=== PATIENT | female | born 1985 | race Asian ===

== ENCOUNTER 2018-01-22 21:53 | Emergency (ER) | payer SELFPAY ==
[~2018-01-22] VITALS: Ht 157.5 cm; Wt 54.4 kg
[2018-01-22 22:04] VITALS: BP_SYST 128
[2018-01-22] MEDS ORDERED: ONDANSETRON HCL 4 MG/2 ML VIAL IVP ONE (22:15)
[2018-01-22] MEDS ORDERED: NACL 0.9% 1,000 ML IV ONE ×2 (22:15→23:15)
[2018-01-22] MEDS ORDERED: KETOROLAC TROMETHAMINE 30 MG VIAL IVP ONE (22:15)
[2018-01-22] MEDS ORDERED: MORPHINE 4 MG/ML INJ. SYRINGE IVP ONE (22:45)
[2018-01-22 23:01] LABS: BASOPHILS % (AUTO) 0.1 % (0.0-2.0); EOSINOPHILS % (AUTO) 0.3 % (0.0-4.0); HEMATOCRIT 38.2 % (36-48); HEMOGLOBIN 12.1 g/dL (12.0-16.0); LYMPHOCYTES # (AUTO) 0.4 K/uL (1.0-5.5); MEAN CORPUSCULAR HEMOGLOBIN 27 pg (27-31); MEAN CORPUSCULAR HGB CONC 32 % (32-36); MEAN CORPUSCULAR VOLUME 86 fL (79.0-98.0); MONOCYTES # (AUTO) 0.3 K/uL (0.0-1.0); MONOCYTES % (AUTO) 4.1 % (1.7-9.3); NEUTROPHILS # (AUTO) 6.7 K/uL (1.8-7.7); NEUTROPHILS % (AUTO) 90.5 % (40.0-70.0); PLATELET COUNT (AUTO) 245 K/uL (130-430); RED BLOOD CELL COUNT(AUTO) 4.45 MIL/uL (4.2-6.2); RED CELL DISTRIBUTION WIDTH 11.7 % (9.0-15.0); WHITE BLOOD COUNT (AUTO) 7.4 K/uL (4.8-10.8)
[2018-01-22 23:08] LABS: CALCIUM 8.6 mg/dL (8.4-11.0); CREATININE 0.78 mg/dL (0.55-1.30); POTASSIUM 4.1 mmol/L (3.5-5.1)
[2018-01-22 23:14] LABS: ALBUMIN 3.3 g/dL (3.4-4.8); TOTAL BILIRUBIN 0.6 mg/dL (0.0-1.0)
[2018-01-23] MEDS ORDERED: DICYCLOMINE HCL 20 MG/2 ML AMP IM ONE (00:15)
[2018-01-23 00:20] VITALS: BP_SYST 124
== END 2018-01-23 00:20 | disposition home or self-care (01) ==
LOC: SED 21:53
DX: T62.91XA Toxic effect of unspecified noxious substance eaten as food, accidental (unintentional), initial encounter (principal); R11.2 Nausea with vomiting, unspecified; R19.7 Diarrhea, unspecified; F41.9 Anxiety disorder, unspecified; Y92.89 Other specified places as the place of occurrence of the external cause
CPT/HCPCS: 36415; 80053; 85025; 96361; 96372; 96374; 96375; 99283; J0500; J1885; J2270; J2405; J7030

== ENCOUNTER 2018-05-26 19:50 | Emergency (ER) | payer MEDICAID ==
[~2018-05-26] VITALS: Ht 162.6 cm; Wt 51.3 kg
[2018-05-26 20:00] VITALS: BP_SYST 105
[2018-05-26] MEDS ORDERED: KETOROLAC TROMETHAMINE 30 MG VIAL IM ONE (20:45)
[2018-05-26] MEDS ORDERED: IBUPROFEN 800 MG TABLET PO ONE (21:30)
[2018-05-26 22:00] VITALS: BP_SYST 105
== END 2018-05-26 22:00 | disposition home or self-care (01) ==
LOC: SED 19:50
DX: S06.0X0A Concussion without loss of consciousness, initial encounter (principal); S16.1XXA Strain of muscle, fascia and tendon at neck level, initial encounter; F41.9 Anxiety disorder, unspecified; V43.52XA Car driver injured in collision with other type car in traffic accident, initial encounter; Y93.89 Activity, other specified; Y92.410 Unspecified street and highway as the place of occurrence of the external cause; Y99.8 Other external cause status
CPT/HCPCS: 70450; 72125; 81025; 99284; J1885

== ENCOUNTER 2019-06-10 20:11 | Emergency (ER) | payer MEDICAID ==
[~2019-06-10] VITALS: Ht 162.6 cm; Wt 68.0 kg
[2019-06-10 20:15] VITALS: BP_SYST 131
[2019-06-10 20:38] LABS: BILIRUBIN,URINE NEGATIVE (NEGATIVE); CLARITY/URINE CLEAR (CLEAR); COLOR,URINE YELLOW (YELLOW); GLUCOSE,URINE NEGATIVE (NEGATIVE); KETONES,URINE TRACE (NEGATIVE); LEUKOCYTE ESTERASE ,URINE NEGATIVE (NEGATIVE); NITRITE, URINE NEGATIVE (NEGATIVE); PH,URINE 6.5 (5.0-8.0); PROTEIN URINE NEGATIVE (NEGATIVE); UROBILINOGEN,URINE 0.2 (0.2-1.0)
[2019-06-10 20:41] LABS: BLOOD, URINE TRACE (NEGATIVE)
[2019-06-10 20:50] LABS: BACTERIA,URINE FEW /HPF (None Seen); MUCUS,URINE None Seen /LPF (None Seen); RBC,URINE NONE SEEN /HPF (0-3); WBC,URINE 0-3 /HPF (0-3)
== END 2019-06-10 20:33 | disposition left against medical advice (07) ==
LOC: SED 20:11
DX: M54.6 Pain in thoracic spine (principal); F15.90 Other stimulant use, unspecified, uncomplicated
CPT/HCPCS: 81000-TC; 81025; 87086; 99283

== ENCOUNTER 2019-06-11 16:01 | Inpatient (IN) | payer MEDICAID ==
[~2019-06-11] VITALS: Ht 162.6 cm; Wt 64.9 kg
[2019-06-11 16:05] VITALS: BP_SYST 149
[2019-06-11] MEDS ORDERED: MORPHINE 2 MG/ML INJ. SYRINGE IVP ONE ×3 (16:30→17:45)
[2019-06-11] MEDS ORDERED: ONDANSETRON HCL 4 MG/2 ML VIAL IVP ONE ×2 (16:30→18:45)
[2019-06-11] MEDS ORDERED: NACL 0.9% 1,000 ML IV ONE ×3 (16:30→20:00)
[2019-06-11 16:46] LABS: BARBITURATE, URINE NEGATIVE (NEG <=200); BENZODIAZEPINE, URINE NEGATIVE (NEG <=150); CANNABINOID, URINE POSITIVE (NEG <=50); COCAINE, URINE NEGATIVE (NEG <=150); METHAMPHETAMINES SCREEN,URINE POSITIVE (NEG <=500); OPIATE, URINE POSITIVE (NEG <=100); PHENCYCLIDINE SCREEN,URINE NEGATIVE (NEG <=25); UR TRICYCLIC ANTIDEPRESSANTS NEGATIVE (NEG <=300); URINE AMPHETAMINE POSITIVE (NEG <=500); URINE METHADONE NEGATIVE (NEG <=200); URINE OXYCODONE SCREEN NEGATIVE (NEG <=100); URINE PROPOXYPHENE SCREEN NEGATIVE (NEG <=300)
[2019-06-11 16:50] LABS: BASOPHILS % (AUTO) 0.3 % (0.0-2.0); EOSINOPHILS % (AUTO) 0.5 % (0.0-4.0); HEMATOCRIT 43.3 % (36-48); LYMPHOCYTES # (AUTO) 0.6 K/uL (1.0-5.5); LYMPHOCYTES % (AUTO) 11.1 % (20.5-51.5); MEAN CORPUSCULAR HEMOGLOBIN 31 pg (27-31); MEAN CORPUSCULAR HGB CONC 32 % (32-36); MEAN CORPUSCULAR VOLUME 95 fL (79.0-98.0); MONOCYTES # (AUTO) 0.5 K/uL (0.0-1.0); MONOCYTES % (AUTO) 10.2 % (1.7-9.3); NEUTROPHILS # (AUTO) 3.9 K/uL (1.8-7.7); NEUTROPHILS % (AUTO) 77.9 % (40.0-70.0); PLATELET COUNT (AUTO) 228 K/uL (130-430); RED BLOOD CELL COUNT(AUTO) 4.55 MIL/uL (4.2-6.2); RED CELL DISTRIBUTION WIDTH 13.6 % (9.0-15.0); WHITE BLOOD COUNT (AUTO) 5.1 K/uL (4.8-10.8)
[2019-06-11 16:56] LABS: CALCIUM 9.4 mg/dL (8.4-11.0); CREATININE 0.7 mg/dL (0.55-1.30); POTASSIUM 4.3 mmol/L (3.5-5.1)
[2019-06-11 17:02] LABS: TOTAL BILIRUBIN 0.7 mg/dL (0.0-1.0)
[2019-06-11] MEDS ORDERED: LORazepam 2 MG/ML VIAL IVP ONE (17:45)
[2019-06-11] MEDS ORDERED: cefTRIAXone 1 GM IVPB PREMIX 50 ML IV ONE (18:15)
[2019-06-11 18:49] LABS: BILIRUBIN,URINE NEGATIVE (NEGATIVE); CLARITY/URINE SL CLOUDY (CLEAR); COLOR,URINE YELLOW (YELLOW); GLUCOSE,URINE NEGATIVE (NEGATIVE); KETONES,URINE 1+ (NEGATIVE); LEUKOCYTE ESTERASE ,URINE NEGATIVE (NEGATIVE); NITRITE, URINE POSITIVE (NEGATIVE); PROTEIN URINE TRACE (NEGATIVE); UROBILINOGEN,URINE 0.2 (0.2-1.0)
[2019-06-11 19:05] LABS: BLOOD, URINE TRACE (NEGATIVE)
[2019-06-11 19:12] LABS: BACTERIA,URINE MODERATE /HPF (None Seen); RBC,URINE 0-3 /HPF (0-3)
[2019-06-11 19:13] LABS: MUCUS,URINE 2+ /LPF (None Seen); URINE AMORPHOUS PHOSPHATES 3+ /HPF (None Seen)
[2019-06-11 20:00] VITALS: BP_SYST 153
[2019-06-11] MEDS ORDERED: ACETAMINOPHEN 325 MG TABLET PO PRN (20:00)
[2019-06-11] MEDS ORDERED: chlordiazePOXIDE HCL 25 MG CAPSULE PO ONE (20:00)
[2019-06-11] MEDS ORDERED: MORPHINE SULFATE 10 MG/ML VIAL IVP PRN ×2 (20:00)
[2019-06-11] MEDS ORDERED: METOCLOPRAMIDE HCL 10 MG/2 ML VIAL IVP PRN (20:00)
[2019-06-11] MEDS ORDERED: ONDANSETRON HCL 4 MG/2 ML VIAL IVP PRN (20:00)
[2019-06-11 20:05] VITALS: BP_SYST 153
[2019-06-11] MEDS: NACL 0.9% 1,000 ML IV SCH (20:41)
[2019-06-11] MEDS: NACL IV SCH ×3 (21:41)
[2019-06-11] MEDS: MVI IV SCH ×3 (21:41)
[2019-06-11] MEDS: FOLIC ACID IV SCH ×3 (21:41)
[2019-06-11] MEDS: BANANA IV SCH ×3 (21:41)
[2019-06-11] MEDS: THIAMINE HCL 100 MG, MAGNESIUM SULFATE 1 GM in NS 100 ML IV SCH (21:42)
[2019-06-11] MEDS ORDERED: HYDROmorphone 1 MG INJ. 1 MG/ML AMPUL IVP PRN (22:45)
[2019-06-11] MEDS: HYDROmorphone 2 MG/ML VIAL IVP PRN (22:56)
[2019-06-12] VITALS: BP_SYST 154
[2019-06-12] MEDS: LORazepam 2 MG/ML VIAL IVP PRN ×2 (01:30→18:28)
[2019-06-12] MEDS: NACL 0.9% 1,000 ML IV SCH ×2 (01:30→10:35)
[2019-06-12] MEDS: HYDROmorphone 2 MG/ML VIAL IVP PRN ×4 (04:09→23:14)
[2019-06-12 06:22] LABS: BASOPHILS % (AUTO) 0.3 % (0.0-2.0); EOSINOPHILS # (AUTO) 0.1 K/uL (0.0-0.4); HEMATOCRIT 44.9 % (36-48); HEMOGLOBIN 14.6 g/dL (12.0-16.0); LYMPHOCYTES # (AUTO) 0.5 K/uL (1.0-5.5); LYMPHOCYTES % (AUTO) 8.1 % (20.5-51.5); MEAN CORPUSCULAR HEMOGLOBIN 31 pg (27-31); MEAN CORPUSCULAR HGB CONC 33 % (32-36); MEAN CORPUSCULAR VOLUME 96 fL (79.0-98.0); MONOCYTES # (AUTO) 0.3 K/uL (0.0-1.0); MONOCYTES % (AUTO) 5.8 % (1.7-9.3); NEUTROPHILS # (AUTO) 5.1 K/uL (1.8-7.7); NEUTROPHILS % (AUTO) 84.8 % (40.0-70.0); PLATELET COUNT (AUTO) 206 K/uL (130-430); RED BLOOD CELL COUNT(AUTO) 4.68 MIL/uL (4.2-6.2); RED CELL DISTRIBUTION WIDTH 13.2 % (9.0-15.0)
[2019-06-12 06:24] LABS: CALCIUM 7.6 mg/dL (8.4-11.0); CREATININE 0.39 mg/dL (0.55-1.30); TOTAL BILIRUBIN 0.9 mg/dL (0.0-1.0)
[2019-06-12 07:26] LABS: POTASSIUM 5.5 mmol/L (3.5-5.1)
[2019-06-12 07:43] VITALS: BP_SYST 149
[2019-06-12] MEDS ORDERED: NACL 0.9% 1,000 ML IV ONE (10:30)
[2019-06-12 12:20] VITALS: BP_SYST 138
[2019-06-12] MEDS: LR 1,000 ML IV SCH ×4 (14:45→22:45)
[2019-06-12 16:13] VITALS: BP_SYST 130
[2019-06-12] MEDS ORDERED: BISACODYL 10 MG/SUPPOSITORY RC PRN (16:45)
[2019-06-12 20:00] VITALS: BP_SYST 144
[2019-06-12] MEDS: chlordiazePOXIDE HCL 25 MG CAPSULE PO SCH (21:00)
[2019-06-12] MEDS: BANANA IV SCH ×3 (22:56)
[2019-06-12] MEDS: MVI IV SCH ×3 (22:56)
[2019-06-12] MEDS: FOLIC ACID IV SCH ×3 (22:56)
[2019-06-12] MEDS: NACL IV SCH ×3 (22:56)
[2019-06-12] MEDS: THIAMINE HCL 100 MG, MAGNESIUM SULFATE 1 GM in NS 100 ML IV SCH (22:58)
[2019-06-13 00:02] VITALS: BP_SYST 131
[2019-06-13] MEDS: LR 1,000 ML IV SCH ×6 (02:45→22:45)
[2019-06-13] MEDS: HYDROmorphone 2 MG/ML VIAL IVP PRN ×5 (03:47→23:00)
[2019-06-13 06:40] LABS: BASOPHILS % (AUTO) 0.5 % (0.0-2.0); EOSINOPHILS # (AUTO) 0.2 K/uL (0.0-0.4); EOSINOPHILS % (AUTO) 3.6 % (0.0-4.0); HEMATOCRIT 40.5 % (36-48); HEMOGLOBIN 13.1 g/dL (12.0-16.0); LYMPHOCYTES # (AUTO) 1.1 K/uL (1.0-5.5); LYMPHOCYTES % (AUTO) 18.5 % (20.5-51.5); MEAN CORPUSCULAR HEMOGLOBIN 31 pg (27-31); MEAN CORPUSCULAR HGB CONC 32 % (32-36); MEAN CORPUSCULAR VOLUME 96 fL (79.0-98.0); MONOCYTES # (AUTO) 0.5 K/uL (0.0-1.0); MONOCYTES % (AUTO) 8.7 % (1.7-9.3); NEUTROPHILS # (AUTO) 4.2 K/uL (1.8-7.7); NEUTROPHILS % (AUTO) 68.7 % (40.0-70.0); PLATELET COUNT (AUTO) 200 K/uL (130-430); RED BLOOD CELL COUNT(AUTO) 4.22 MIL/uL (4.2-6.2); RED CELL DISTRIBUTION WIDTH 13.4 % (9.0-15.0); WHITE BLOOD COUNT (AUTO) 6.1 K/uL (4.8-10.8)
[2019-06-13 06:48] LABS: ALBUMIN 2.4 g/dL (3.4-4.8); CALCIUM 7.6 mg/dL (8.4-11.0); CREATININE 0.57 mg/dL (0.55-1.30); POTASSIUM 3.5 mmol/L (3.5-5.1); TOTAL BILIRUBIN 0.7 mg/dL (0.0-1.0)
[2019-06-13] MEDS ORDERED: NACL 0.9% 1,000 ML IV ONE (07:30)
[2019-06-13 08:00] VITALS: BP_SYST 137
[2019-06-13] MEDS: chlordiazePOXIDE HCL 25 MG CAPSULE PO SCH ×3 (08:36→21:34)
[2019-06-13] MEDS ORDERED: DIATR MEGLU/DIATRIZ SOD 30 ML SOLUTION PO ONE (08:46)
[2019-06-13] MEDS ORDERED: IOHEXOL 100 ML IV ONE (11:02)
[2019-06-13 12:30] VITALS: BP_SYST 125
[2019-06-13 16:32] VITALS: BP_SYST 120
[2019-06-13 20:00] VITALS: BP_SYST 118
[2019-06-13] MEDS: MVI IV SCH ×3 (21:28)
[2019-06-13] MEDS: NACL IV SCH ×3 (21:28)
[2019-06-13] MEDS: BANANA IV SCH ×3 (21:28)
[2019-06-13] MEDS: FOLIC ACID IV SCH ×3 (21:28)
[2019-06-13] MEDS: THIAMINE HCL 100 MG, MAGNESIUM SULFATE 1 GM in NS 100 ML IV SCH (21:28)
[2019-06-14 00:48] VITALS: BP_SYST 130
[2019-06-14] MEDS: LR 1,000 ML IV SCH ×5 (01:18→18:20)
[2019-06-14] MEDS: HYDROmorphone 2 MG/ML VIAL IVP PRN ×6 (03:04→22:34)
[2019-06-14 06:12] LABS: ALBUMIN 2.5 g/dL (3.4-4.8); CALCIUM 7.8 mg/dL (8.4-11.0); CREATININE 0.51 mg/dL (0.55-1.30); POTASSIUM 3.4 mmol/L (3.5-5.1); TOTAL BILIRUBIN 0.7 mg/dL (0.0-1.0)
[2019-06-14 06:36] LABS: BASOPHILS % (AUTO) 0.6 % (0.0-2.0); EOSINOPHILS # (AUTO) 0.3 K/uL (0.0-0.4); EOSINOPHILS % (AUTO) 5.4 % (0.0-4.0); HEMATOCRIT 36.1 % (36-48); HEMOGLOBIN 11.4 g/dL (12.0-16.0); LYMPHOCYTES # (AUTO) 0.8 K/uL (1.0-5.5); LYMPHOCYTES % (AUTO) 16.6 % (20.5-51.5); MEAN CORPUSCULAR HEMOGLOBIN 31 pg (27-31); MEAN CORPUSCULAR HGB CONC 32 % (32-36); MEAN CORPUSCULAR VOLUME 97 fL (79.0-98.0); MONOCYTES # (AUTO) 0.4 K/uL (0.0-1.0); NEUTROPHILS # (AUTO) 3.5 K/uL (1.8-7.7); NEUTROPHILS % (AUTO) 69.4 % (40.0-70.0); PLATELET COUNT (AUTO) 195 K/uL (130-430); RED BLOOD CELL COUNT(AUTO) 3.74 MIL/uL (4.2-6.2); RED CELL DISTRIBUTION WIDTH 13.1 % (9.0-15.0); WHITE BLOOD COUNT (AUTO) 5.1 K/uL (4.8-10.8)
[2019-06-14 08:00] VITALS: BP_SYST 124
[2019-06-14] MEDS ORDERED: NACL 0.9% 1,000 ML IV ONE (08:45)
[2019-06-14] MEDS: chlordiazePOXIDE HCL 25 MG CAPSULE PO SCH ×3 (09:29→21:37)
[2019-06-14] MEDS: cefTRIAXone 1 GM IVPB PREMIX 50 ML IV SCH (09:29)
[2019-06-14 12:35] VITALS: BP_SYST 124
[2019-06-14] MEDS ORDERED: GOLYTELY / COLYTE SOLUTION 4 LITERS PO ONE (15:30)
[2019-06-14] MEDS ORDERED: BISACODYL 5 MG TABLET.DR (DULCOLAX) PO ONE (15:30)
[2019-06-14 16:49] VITALS: BP_SYST 121
[2019-06-14 21:00] VITALS: BP_SYST 135
[2019-06-14] MEDS: MVI IV SCH ×3 (21:38)
[2019-06-14] MEDS: THIAMINE HCL 100 MG, MAGNESIUM SULFATE 1 GM in NS 100 ML IV SCH (21:38)
[2019-06-14] MEDS: NACL IV SCH ×3 (21:38)
[2019-06-14] MEDS: FOLIC ACID IV SCH ×3 (21:38)
[2019-06-14] MEDS: BANANA IV SCH ×3 (21:38)
[2019-06-15 00:42] VITALS: BP_SYST 167
[2019-06-15] MEDS: LR 1,000 ML IV SCH ×7 (00:54→22:45)
[2019-06-15] MEDS: HYDROmorphone 2 MG/ML VIAL IVP PRN ×6 (02:57→22:52)
[2019-06-15 06:26] LABS: ALBUMIN 2.6 g/dL (3.4-4.8); CALCIUM 8.3 mg/dL (8.4-11.0); CREATININE 0.56 mg/dL (0.55-1.30); POTASSIUM 3.4 mmol/L (3.5-5.1); TOTAL BILIRUBIN 0.4 mg/dL (0.0-1.0)
[2019-06-15 06:52] LABS: BASOPHILS % (AUTO) 0.9 % (0.0-2.0); EOSINOPHILS # (AUTO) 0.3 K/uL (0.0-0.4); EOSINOPHILS % (AUTO) 6.1 % (0.0-4.0); HEMATOCRIT 34.2 % (36-48); HEMOGLOBIN 11.1 g/dL (12.0-16.0); LYMPHOCYTES % (AUTO) 20.5 % (20.5-51.5); MEAN CORPUSCULAR HEMOGLOBIN 32 pg (27-31); MEAN CORPUSCULAR HGB CONC 33 % (32-36); MEAN CORPUSCULAR VOLUME 97 fL (79.0-98.0); MONOCYTES # (AUTO) 0.5 K/uL (0.0-1.0); MONOCYTES % (AUTO) 10.4 % (1.7-9.3); NEUTROPHILS # (AUTO) 3.1 K/uL (1.8-7.7); NEUTROPHILS % (AUTO) 62.1 % (40.0-70.0); PLATELET COUNT (AUTO) 252 K/uL (130-430); RED BLOOD CELL COUNT(AUTO) 3.53 MIL/uL (4.2-6.2); RED CELL DISTRIBUTION WIDTH 12.8 % (9.0-15.0)
[2019-06-15 08:00] VITALS: BP_SYST 142
[2019-06-15] MEDS: cefTRIAXone 1 GM IVPB PREMIX 50 ML IV SCH (08:57)
[2019-06-15] MEDS: chlordiazePOXIDE HCL 25 MG CAPSULE PO SCH ×3 (08:57→20:40)
[2019-06-15] MEDS ORDERED: POTASSIUM CHLORIDE 20 MEQ TAB.PRT.SR PO ONE (10:15)
[2019-06-15 12:21] VITALS: BP_SYST 153
[2019-06-15 16:27] VITALS: BP_SYST 127
[2019-06-15 19:35] VITALS: BP_SYST 125
[2019-06-15] MEDS: MVI IV SCH ×3 (20:21)
[2019-06-15] MEDS: NACL IV SCH ×3 (20:21)
[2019-06-15] MEDS: FOLIC ACID IV SCH ×3 (20:21)
[2019-06-15] MEDS: BANANA IV SCH ×3 (20:21)
[2019-06-15] MEDS: THIAMINE HCL 100 MG, MAGNESIUM SULFATE 1 GM in NS 100 ML IV SCH (20:21)
[2019-06-16 00:16] VITALS: BP_SYST 110
[2019-06-16] MEDS: LR 1,000 ML IV SCH ×6 (01:40→22:45)
[2019-06-16] MEDS: HYDROmorphone 2 MG/ML VIAL IVP PRN ×6 (03:08→22:31)
[2019-06-16 06:44] LABS: BASOPHILS % (AUTO) 0.6 % (0.0-2.0); EOSINOPHILS # (AUTO) 0.3 K/uL (0.0-0.4); EOSINOPHILS % (AUTO) 5.8 % (0.0-4.0); HEMATOCRIT 34.9 % (36-48); HEMOGLOBIN 11.3 g/dL (12.0-16.0); LYMPHOCYTES # (AUTO) 1.1 K/uL (1.0-5.5); MEAN CORPUSCULAR HEMOGLOBIN 31 pg (27-31); MEAN CORPUSCULAR HGB CONC 32 % (32-36); MEAN CORPUSCULAR VOLUME 96 fL (79.0-98.0); MONOCYTES # (AUTO) 0.6 K/uL (0.0-1.0); MONOCYTES % (AUTO) 11.9 % (1.7-9.3); NEUTROPHILS # (AUTO) 2.7 K/uL (1.8-7.7); NEUTROPHILS % (AUTO) 57.7 % (40.0-70.0); PLATELET COUNT (AUTO) 248 K/uL (130-430); RED BLOOD CELL COUNT(AUTO) 3.65 MIL/uL (4.2-6.2); WHITE BLOOD COUNT (AUTO) 4.7 K/uL (4.8-10.8)
[2019-06-16 06:55] LABS: ALBUMIN 2.6 g/dL (3.4-4.8); CALCIUM 8.3 mg/dL (8.4-11.0); CREATININE 0.58 mg/dL (0.55-1.30); POTASSIUM 3.4 mmol/L (3.5-5.1); TOTAL BILIRUBIN 0.5 mg/dL (0.0-1.0)
[2019-06-16 08:00] VITALS: BP_SYST 133
[2019-06-16] MEDS: chlordiazePOXIDE HCL 25 MG CAPSULE PO SCH ×3 (08:53→20:43)
[2019-06-16] MEDS: cefTRIAXone 1 GM IVPB PREMIX 50 ML IV SCH (08:54)
[2019-06-16 12:26] VITALS: BP_SYST 144
[2019-06-16 16:29] VITALS: BP_SYST 118
[2019-06-16 19:45] VITALS: BP_SYST 120
[2019-06-16] MEDS: NACL IV SCH ×3 (20:28)
[2019-06-16] MEDS: BANANA IV SCH ×3 (20:28)
[2019-06-16] MEDS: FOLIC ACID IV SCH ×3 (20:28)
[2019-06-16] MEDS: MVI IV SCH ×3 (20:28)
[2019-06-16] MEDS: THIAMINE HCL 100 MG, MAGNESIUM SULFATE 1 GM in NS 100 ML IV SCH (20:29)
[2019-06-16 23:59] VITALS: BP_SYST 129
[2019-06-17] MEDS: LORazepam 2 MG/ML VIAL IVP PRN (00:54)
[2019-06-17] MEDS: HYDROmorphone 2 MG/ML VIAL IVP PRN ×2 (02:35→06:49)
[2019-06-17] MEDS: LR 1,000 ML IV SCH ×2 (02:36→06:50)
[2019-06-17 07:07] LABS: ALBUMIN 2.4 g/dL (3.4-4.8); CALCIUM 8.2 mg/dL (8.4-11.0); CREATININE 0.55 mg/dL (0.55-1.30); POTASSIUM 3.3 mmol/L (3.5-5.1); TOTAL BILIRUBIN 0.2 mg/dL (0.0-1.0)
[2019-06-17 07:27] LABS: BASOPHILS % (AUTO) 0.8 % (0.0-2.0); EOSINOPHILS # (AUTO) 0.2 K/uL (0.0-0.4); EOSINOPHILS % (AUTO) 6.5 % (0.0-4.0); HEMATOCRIT 36.1 % (36-48); HEMOGLOBIN 11.6 g/dL (12.0-16.0); LYMPHOCYTES # (AUTO) 1.1 K/uL (1.0-5.5); LYMPHOCYTES % (AUTO) 30.7 % (20.5-51.5); MEAN CORPUSCULAR HEMOGLOBIN 31 pg (27-31); MEAN CORPUSCULAR HGB CONC 32 % (32-36); MEAN CORPUSCULAR VOLUME 96 fL (79.0-98.0); MONOCYTES # (AUTO) 0.6 K/uL (0.0-1.0); MONOCYTES % (AUTO) 16.2 % (1.7-9.3); NEUTROPHILS # (AUTO) 1.6 K/uL (1.8-7.7); NEUTROPHILS % (AUTO) 45.8 % (40.0-70.0); PLATELET COUNT (AUTO) 261 K/uL (130-430); RED BLOOD CELL COUNT(AUTO) 3.76 MIL/uL (4.2-6.2); RED CELL DISTRIBUTION WIDTH 12.8 % (9.0-15.0); WHITE BLOOD COUNT (AUTO) 3.6 K/uL (4.8-10.8)
[2019-06-17] MEDS: chlordiazePOXIDE HCL 25 MG CAPSULE PO SCH (09:41)
[2019-06-17] MEDS: cefTRIAXone 1 GM IVPB PREMIX 50 ML IV SCH (09:41)
[2019-06-17 12:23] VITALS: BP_SYST 129
[2019-06-17 14:12] VITALS: BP_SYST 130
== END 2019-06-17 14:55 | disposition home or self-care (01) | DRG 282 ==
LOC: SED 16:01 → STU 18:41 → SMU 06-12 11:06
PROVIDERS: ADMIT Internal Medicine Hospice and Palliative Medicine; ATTEND Internal Medicine Hospice and Palliative Medicine
DX: K85.20 Alcohol induced acute pancreatitis without necrosis or infection (principal); R65.10 Systemic inflammatory response syndrome (SIRS) of non-infectious origin without acute organ dysfunction; K70.9 Alcoholic liver disease, unspecified; E87.1 Hypo-osmolality and hyponatremia; F10.20 Alcohol dependence, uncomplicated; I10 Essential (primary) hypertension; Y90.9 Presence of alcohol in blood, level not specified; F12.10 Cannabis abuse, uncomplicated; F15.10 Other stimulant abuse, uncomplicated; K59.00 Constipation, unspecified; F11.10 Opioid abuse, uncomplicated; N39.0 Urinary tract infection, site not specified; K86.1 Other chronic pancreatitis; K86.0 Alcohol-induced chronic pancreatitis; K59.09 Other constipation
CPT/HCPCS: 36415; 74018; 80053; 80307; 81000-TC; 82150-TC; 83605; 83690-TC; 84702-TC; 85025; 87040-TC; 87086; 87186-TC; 96361; 96365; 96375; 96376; 99285; G0378; G0482; J0696; J1170; J2060; J2270; J2405; J3411; J3475; J3490; J7030; J7120; Q9964; Q9967